=== PATIENT | male | born 1980 | race Caucasian/White ===

== ENCOUNTER 2020-12-08 16:00 | Emergency (ER) | payer OTHER ==
[~2020-12-08 16:00] MED LIST: ANTI-DIARRHEAL2 MG PO; ATARAX25 MG PO; AUGMENTIN 875-1 EACH PO; BENTYL10 MG PO; BUSPAR5 MG PO; CARAFATE1 G1 PO; CARAFATE1 GM PO; DILAUDID2 MG PO; FLEXERIL10 MG PO; GABAPENTIN600 MG PO; KEFLEX250 MG PO; LEVAQUIN750 MG PO; LEXAPRO 10MG TA10 MG PO; LIPITOR20 MG PO; MEDROL 4MG DOSEP4 MG PO; NORCO 5-325 TA1 EACH PO; ONDANSETRON HCL4 MG PO; ONDANSETRON ODT4 MG PO; ONDANSETRON ODT4 MG SL; PEPCID AC20 MG PO; PERCOCET 5-3251 EACH PO; PERCOCET 7.5/321 TAB PO; PHENERGAN25 M1 PO; PREDNISONE50 MG PO; PRINIVIL10 MG PO; PROMETHEGA12.5 MG/SU PR; PROTONIX 40MG T40 MG PO; ROBAXIN500 MG PO; ZOFRAN4 MG SL
[2020-12-08 19:30] LABS: BASOPHIL 0.7 % (0-2); EOSINOPHIL 0.7 % (0-5); HCT 43.7 % (42.0-52.0); HGB 14.2 g/dl (13.2-18.0); LYMPHOCYTE 28.4 % (15-48); MCH 29.8 pg (25.0-31.0); MCHC 32.5 g/dL (32.0-36.0); MCV 91.8 fL (78.0-100.0); MONOCYTE 5.5 % (0-12); MPV 9.9 fL (6.0-9.5); NEUTROPHIL 64.4 % (41-80); NRBC 0; PLT 291 K/uL (150-400); RBC 4.76 M/uL (4.70-6.00); RDW 14.1 % (11.5-14.0); WBC 7.3 K/uL (4.0-10.5)
[2020-12-08 19:30] LABS: BILIRUBIN NEGATIVE (NEGATIVE); BLOOD NEGATIVE Ery/uL (NEGATIVE); CLARITY CLEAR (CLEAR); COLOR YELLOW (YELLOW); GLUCOSE (U) NORMAL (NORMAL); LEUKOCYTES NEGATIVE Leu/uL (NEGATIVE); NITRITE NEGATIVE (NEGATIVE); PROTEIN NEGATIVE (NEGATIVE); SPECIFIC GRAVITY 1.025 (1.001-1.030); UROBILINOGEN 0.2 mg/dL (0.2-1.0); pH 5.5 (5.0-9.0)
[2020-12-08 19:33] LABS: AMPHETAMINES NEGATIVE (NEGATIVE); BARBITURATES NEGATIVE (NEGATIVE); ECSTASY (MDMA) NEGATIVE (NEGATIVE); MARIJUANA (THC) NEGATIVE (NEGATIVE); METHADONE NEGATIVE (NEGATIVE); OPIATES NEGATIVE (NEGATIVE); OXYCODONE NEGATIVE (NEGATIVE)
[2020-12-08 19:49] LABS: BILIRUBIN - TOTAL 0.4 mg/dL (0.2-1.0); BUN/CREAT RATIO (CALC) 13.3 RATIO; CREATININE 0.98 mg/dL (0.67-1.17); GLOBULIN (CALCULATION) 4.3 g/dL; POTASSIUM 3.9 mmol/L (3.5-5.1); TOTAL PROTEIN 8.3 g/dL (6.4-8.2)
== END 2020-12-08 19:45 | disposition home or self-care (01) ==
LOC: FER 16:00
PROVIDERS: Nurse Practitioner Family
DX: K92.0 Hematemesis (principal); R10.84 Generalized abdominal pain; R63.0 Anorexia; I10 Essential (primary) hypertension; Z87.11 Personal history of peptic ulcer disease; Z88.6 Allergy status to analgesic agent; Z88.8 Allergy status to other drugs, medicaments and biological substances; Z87.891 Personal history of nicotine dependence; Z90.49 Acquired absence of other specified parts of digestive tract
CPT/HCPCS: 36415; 80053; 80305; 81003; 85025; 99284

== ENCOUNTER 2021-02-21 09:37 | Emergency (ER) | payer OTHER | END 2021-02-21 15:47 | disposition other institution (70) | LOC: FER 09:37 | DX: M54.40 Lumbago with sciatica, unspecified side (principal); I10 Essential (primary) hypertension; G89.29 Other chronic pain; Z79.891 Long term (current) use of opiate analgesic; Z87.19 Personal history of other diseases of the digestive system | CPT/HCPCS: 99284 ==

== ENCOUNTER 2021-04-03 11:07 | Emergency (ER) | payer OTHER | END 2021-04-03 12:52 | disposition left against medical advice (07) | LOC: FER 11:07 | DX: S51.852A Open bite of left forearm, initial encounter (principal); Z88.5 Allergy status to narcotic agent; Z88.8 Allergy status to other drugs, medicaments and biological substances; Z91.041 Radiographic dye allergy status; W59.11XA Bitten by nonvenomous snake, initial encounter; Z87.891 Personal history of nicotine dependence; Z53.8 Procedure and treatment not carried out for other reasons | CPT/HCPCS: 99283 ==

== ENCOUNTER 2021-05-05 14:54 | Emergency (ER) | payer OTHER ==
[2021-05-05 17:07] LABS: BASOPHIL 0.7 % (0-2); EOSINOPHIL 2.1 % (0-5); HCT 44.1 % (42.0-52.0); HGB 14.5 g/dl (13.2-18.0); LYMPHOCYTE 24.2 % (15-48); MCH 29.5 pg (25.0-31.0); MCHC 32.9 g/dL (32.0-36.0); MCV 89.8 fL (78.0-100.0); MONOCYTE 7.8 % (0-12); MPV 9.4 fL (6.0-9.5); NEUTROPHIL 64.4 % (41-80); NRBC 0; PLT 247 K/uL (150-400); RBC 4.91 M/uL (4.70-6.00); RDW 13.4 % (11.5-14.0); WBC 7.7 K/uL (4.0-10.5)
[2021-05-05 17:17] LABS: INR 1.01 (0.9-1.2); PROTHROMBIN TIME 12.6 SECONDS (11.4-13.6); PTT 25.4 SECONDS (22.2-34.7)
[2021-05-05 17:21] LABS: POTASSIUM 4.1 mmol/L (3.5-5.1)
[2021-05-05] MEDS ORDERED: XARELTO15 MG PO (17:43)
== END 2021-05-05 18:05 | disposition home or self-care (01) ==
LOC: FER 14:54
PROVIDERS: Emergency Medicine
DX: I82.401 Acute embolism and thrombosis of unspecified deep veins of right lower extremity (principal); I10 Essential (primary) hypertension; Z88.6 Allergy status to analgesic agent; Z88.8 Allergy status to other drugs, medicaments and biological substances
CPT/HCPCS: 36415; 80048; 85025; 85610; 85730

== ENCOUNTER 2021-05-09 16:51 | Emergency (ER) | payer OTHER ==
[~2021-05-09 16:51] MED LIST changes: +XARELTO15 MG PO
[2021-05-09 20:09] LABS: BASOPHIL 0.8 % (0-2); BILIRUBIN NEGATIVE (NEGATIVE); BLOOD NEGATIVE Ery/uL (NEGATIVE); CLARITY CLEAR (CLEAR); COLOR YELLOW (YELLOW); EOSINOPHIL 0.9 % (0-5); GLUCOSE (U) NORMAL (NORMAL); HCT 40.1 % (42.0-52.0); HGB 13.7 g/dl (13.2-18.0); LEUKOCYTES NEGATIVE Leu/uL (NEGATIVE); MCH 30.3 pg (25.0-31.0); MCHC 34.2 g/dL (32.0-36.0); MCV 88.7 fL (78.0-100.0); MONOCYTE 6.2 % (0-12); MPV 9.4 fL (6.0-9.5); NEUTROPHIL 65.3 % (41-80); NITRITE NEGATIVE (NEGATIVE); NRBC 0; PLT 277 K/uL (150-400); PROTEIN NEGATIVE (NEGATIVE); RBC 4.52 M/uL (4.70-6.00); RDW 13.8 % (11.5-14.0); SPECIFIC GRAVITY 1.015 (1.001-1.030); UROBILINOGEN 0.2 mg/dL (0.2-1.0)
[2021-05-09 20:28] LABS: CREATININE 1.12 mg/dL (0.67-1.17); POTASSIUM 4.2 mmol/L (3.5-5.1); TOTAL PROTEIN 8.3 g/dL (6.4-8.2)
[2021-05-09 20:29] LABS: ALBUMIN 4.2 g/dL (3.4-5.0); BILIRUBIN - TOTAL 0.3 mg/dL (0.2-1.0); GLOBULIN (CALCULATION) 4.1 g/dL
== END 2021-05-09 22:50 | disposition home or self-care (01) ==
LOC: FER 16:51
PROVIDERS: Emergency Medicine
DX: N50.811 Right testicular pain (principal); I10 Essential (primary) hypertension; F17.200 Nicotine dependence, unspecified, uncomplicated; Z86.718 Personal history of other venous thrombosis and embolism; Z88.6 Allergy status to analgesic agent; Z88.8 Allergy status to other drugs, medicaments and biological substances
CPT/HCPCS: 36415; 76870; 80053; 81003; 85025; J2270; J2405; J7030

== ENCOUNTER 2021-05-15 15:05 | Inpatient (IN) | payer OTHER ==
[~2021-05-15] VITALS: Ht 175.3 cm; Wt 94.4 kg
[2021-05-15 19:19] LABS: BASOPHIL 0.6 % (0-2); EOSINOPHIL 0.5 % (0-5); HCT 44.7 % (42.0-52.0); HGB 14.9 g/dl (13.2-18.0); LYMPHOCYTE 22.6 % (15-48); MCH 29.7 pg (25.0-31.0); MCHC 33.3 g/dL (32.0-36.0); MONOCYTE 8.1 % (0-12); MPV 9.3 fL (6.0-9.5); NEUTROPHIL 67.4 % (41-80); NRBC 0; PLT 298 K/uL (150-400); RBC 5.02 M/uL (4.70-6.00); RDW 13.8 % (11.5-14.0); WBC 11.6 K/uL (4.0-10.5)
[2021-05-15 19:56] LABS: CREATININE 2.23 mg/dL (0.67-1.17); POTASSIUM 4.6 mmol/L (3.5-5.1)
[2021-05-16] MEDS ORDERED: TIZANIDINE HCL4 MG PO
[2021-05-16 10:07] LABS: BASOPHIL 0.9 % (0-2); EOSINOPHIL 0.9 % (0-5); HCT 42.2 % (42.0-52.0); HGB 13.6 g/dl (13.2-18.0); LYMPHOCYTE 24.9 % (15-48); MCH 29.8 pg (25.0-31.0); MCHC 32.2 g/dL (32.0-36.0); MCV 92.5 fL (78.0-100.0); MONOCYTE 7.3 % (0-12); MPV 9.5 fL (6.0-9.5); NEUTROPHIL 65.6 % (41-80); NRBC 0; PLT 212 K/uL (150-400); RBC 4.56 M/uL (4.70-6.00); RDW 14.1 % (11.5-14.0); RETICULOCYTE COUNT 1.3 % (1.0-2.0)
[2021-05-16 10:24] LABS: INR 2.01 (0.9-1.2); PROTHROMBIN TIME 21.7 SECONDS (11.4-13.6)
[2021-05-16 10:28] LABS: IRON % SATURATION 17.1 %SAT (20-50)
[2021-05-16 10:40] LABS: PRO-BNP 5 pg/mL (<125)
[2021-05-16 11:06] LABS: ALBUMIN 3.8 g/dL (3.4-5.0); BILIRUBIN - TOTAL 0.3 mg/dL (0.2-1.0); BUN/CREAT RATIO (CALC) 24.6 RATIO; CREATININE 1.22 mg/dL (0.67-1.17); FOLIC ACID (SERUM) 39.5 ng/mL (8.6-58.9); GLOBULIN (CALCULATION) 3.7 g/dL; MAGNESIUM 2.3 mg/dL (1.8-2.4); PHOSPHORUS 2.7 mg/dL (2.6-4.7); POTASSIUM 5.1 mmol/L (3.5-5.1); TOTAL PROTEIN 7.5 g/dL (6.4-8.2)
[2021-05-16 14:20] LABS: HCT 40.6 % (42.0-52.0); HGB 13.5 g/dl (13.2-18.0); MCH 30.1 pg (25.0-31.0); MCHC 33.3 g/dL (32.0-36.0); MCV 90.4 fL (78.0-100.0); MPV 9.2 fL (6.0-9.5); RBC 4.49 M/uL (4.70-6.00); RDW 14.1 % (11.5-14.0); WBC 7.1 K/uL (4.0-10.5)
[2021-05-16 14:47] LABS: BUN/CREAT RATIO (CALC) 23.3 RATIO; CREATININE 1.16 mg/dL (0.67-1.17); POTASSIUM 4.9 mmol/L (3.5-5.1)
[2021-05-16 20:55] LABS: HCT 40.4 % (42.0-52.0); HGB 13.8 g/dl (13.2-18.0); MCH 30.1 pg (25.0-31.0); MCHC 34.2 g/dL (32.0-36.0); MCV 88.2 fL (78.0-100.0); MPV 9.6 fL (6.0-9.5); RBC 4.58 M/uL (4.70-6.00); RDW 14.2 % (11.5-14.0); WBC 8.4 K/uL (4.0-10.5)
[2021-05-17 06:39] LABS: BASOPHIL 0.6 % (0-2); BUN/CREAT RATIO (CALC) 15.4 RATIO; CREATININE 1.04 mg/dL (0.67-1.17); EOSINOPHIL 1.8 % (0-5); HCT 37.5 % (42.0-52.0); HGB 12.4 g/dl (13.2-18.0); LYMPHOCYTE 24.5 % (15-48); MCH 29.5 pg (25.0-31.0); MCHC 33.1 g/dL (32.0-36.0); MCV 89.3 fL (78.0-100.0); MONOCYTE 7.8 % (0-12); MPV 9.2 fL (6.0-9.5); NEUTROPHIL 64.8 % (41-80); NRBC 0; PLT 229 K/uL (150-400); POTASSIUM 5.3 mmol/L (3.5-5.1); RDW 13.8 % (11.5-14.0); WBC 7.9 K/uL (4.0-10.5)
--- NOTE | 2021-05-17 10:50 | NUR ---
PATIENT ASKED TO LEAVE AMA, WHEN QUESTIONTING PATIENT OF THE REASONING, HE STATED HIS WANTS HIM TO GO TO [facility] TO SEEN. PATIENT STATED HE WAS HAPPY WITH HIS CARE HERE, THE ONLY REASON HE IS LEAVING IS BECAUSE HIS WANTS HIM TO. IV, HEART MONITOR REMOVED, AND AMA PAPER SIGNED.
== END 2021-05-17 10:55 | disposition left against medical advice (07) | DRG 378 ==
LOC: FER 15:05 → FMS 22:02
PROVIDERS: Hospitalist; Nurse Practitioner Family; ADMIT Internal Medicine
DX: K92.0 Hematemesis (principal); N17.9 Acute kidney failure, unspecified; E86.0 Dehydration; I10 Essential (primary) hypertension; F41.9 Anxiety disorder, unspecified; K21.9 Gastro-esophageal reflux disease without esophagitis; E78.5 Hyperlipidemia, unspecified; F32.9 Major depressive disorder, single episode, unspecified; Z20.822 Contact with and (suspected) exposure to COVID-19; K44.9 Diaphragmatic hernia without obstruction or gangrene; Z87.891 Personal history of nicotine dependence; Z86.718 Personal history of other venous thrombosis and embolism; Z79.01 Long term (current) use of anticoagulants; Z90.49 Acquired absence of other specified parts of digestive tract; Z88.8 Allergy status to other drugs, medicaments and biological substances; Z98.890 Other specified postprocedural states; Z79.899 Other long term (current) drug therapy; Z87.11 Personal history of peptic ulcer disease; Z56.0 Unemployment, unspecified
CPT/HCPCS: 36415; 70450; 80048; 80053; 82607; 82746; 82941; 83540; 83550; 83605; 83735; 83880; 84100; 84145; 84484; 85025; 85610; 85730; 86850; 86900; 86901; 93005; 94010; C9113; J1170; J2270; J2354; J2405; J7030

== ENCOUNTER 2021-06-02 21:56 | Emergency (ER) | payer OTHER ==
[~2021-06-02 21:56] MED LIST changes: +TIZANIDINE HCL4 MG PO
[2021-06-02 23:34] LABS: BASOPHIL 0.7 % (0-2); HCT 39.4 % (42.0-52.0); HGB 13.5 g/dl (13.2-18.0); LYMPHOCYTE 28.7 % (15-48); MCH 30.2 pg (25.0-31.0); MCHC 34.3 g/dL (32.0-36.0); MCV 88.1 fL (78.0-100.0); MONOCYTE 7.3 % (0-12); MPV 10.1 fL (6.0-9.5); NEUTROPHIL 61.6 % (41-80); NRBC 0; PLT 284 K/uL (150-400); RBC 4.47 M/uL (4.70-6.00); RDW 14.4 % (11.5-14.0); WBC 7.3 K/uL (4.0-10.5)
[2021-06-02 23:39] LABS: INR 1.24 (0.9-1.2); PROTHROMBIN TIME 14.9 SECONDS (11.8-13.4); PTT 27.7 SECONDS (24.4-34.7)
[2021-06-02 23:44] LABS: ALBUMIN 3.8 g/dL (3.4-5.0); BILIRUBIN - TOTAL 0.3 mg/dL (0.2-1.0); BUN/CREAT RATIO (CALC) 14.2 RATIO; CREATININE 1.06 mg/dL (0.67-1.17); POTASSIUM 4.2 mmol/L (3.5-5.1); TOTAL PROTEIN 7.8 g/dL (6.4-8.2)
[2021-06-02 23:53] LABS: BILIRUBIN NEGATIVE (NEGATIVE); BLOOD NEGATIVE Ery/uL (NEGATIVE); CLARITY CLEAR (CLEAR); COLOR YELLOW (YELLOW); GLUCOSE (U) NORMAL (NORMAL); LEUKOCYTES NEGATIVE Leu/uL (NEGATIVE); NITRITE NEGATIVE (NEGATIVE); PROTEIN NEGATIVE (NEGATIVE); UROBILINOGEN 0.2 mg/dL (0.2-1.0); pH 5.5 (5.0-9.0)
[2021-06-02 23:55] LABS: AMPHETAMINES NEGATIVE (NEGATIVE); BARBITURATES NEGATIVE (NEGATIVE); ECSTASY (MDMA) NEGATIVE (NEGATIVE); MARIJUANA (THC) NEGATIVE (NEGATIVE); METHADONE NEGATIVE (NEGATIVE); OPIATES NEGATIVE (NEGATIVE); OXYCODONE NEGATIVE (NEGATIVE)
== END 2021-06-03 00:48 | disposition home or self-care (01) ==
LOC: FER 21:56
PROVIDERS: Emergency Medicine
DX: K92.0 Hematemesis (principal); Z86.718 Personal history of other venous thrombosis and embolism; Z88.6 Allergy status to analgesic agent; Z87.891 Personal history of nicotine dependence
CPT/HCPCS: 36415; 80053; 80305; 81003; 82271; 85025; 85610; 85730; C9113; J0595; J2270; J2405; J7030

== ENCOUNTER 2021-06-30 19:22 | Emergency (ER) | payer OTHER ==
[2021-06-30 20:26] LABS: BASOPHIL 0.8 % (0-2); EOSINOPHIL 1.6 % (0-5); HCT 43.7 % (42.0-52.0); MCH 28.9 pg (25.0-31.0); MCV 90.3 fL (78.0-100.0); MONOCYTE 8.1 % (0-12); MPV 9.8 fL (6.0-9.5); NEUTROPHIL 60.6 % (41-80); NRBC 0; PLT 242 K/uL (150-400); RBC 4.84 M/uL (4.70-6.00); RDW 14.7 % (11.5-14.0); WBC 9.2 K/uL (4.0-10.5)
[2021-06-30 20:41] LABS: BUN/CREAT RATIO (CALC) 24.5 RATIO; CREATININE 1.02 mg/dL (0.67-1.17); MAGNESIUM 2.3 mg/dL (1.8-2.4); POTASSIUM 4.4 mmol/L (3.5-5.1)
[2021-06-30 20:58] LABS: BILIRUBIN NEGATIVE (NEGATIVE); BLOOD NEGATIVE Ery/uL (NEGATIVE); CLARITY CLEAR (CLEAR); COLOR YELLOW (YELLOW); GLUCOSE (U) NORMAL (NORMAL); LEUKOCYTES NEGATIVE Leu/uL (NEGATIVE); NITRITE NEGATIVE (NEGATIVE); PROTEIN NEGATIVE (NEGATIVE); pH 6.5 (5.0-9.0)
[2021-06-30 21:02] LABS: AMPHETAMINES NEGATIVE (NEGATIVE); BARBITURATES NEGATIVE (NEGATIVE); ECSTASY (MDMA) NEGATIVE (NEGATIVE); MARIJUANA (THC) NEGATIVE (NEGATIVE); METHADONE NEGATIVE (NEGATIVE); OPIATES NEGATIVE (NEGATIVE); OXYCODONE POSITIVE (NEGATIVE)
== END 2021-06-30 22:34 | disposition home or self-care (01) ==
LOC: FER 19:22
PROVIDERS: Emergency Medicine Emergency Medical Services
DX: I82.431 Acute embolism and thrombosis of right popliteal vein (principal); I82.451 Acute embolism and thrombosis of right peroneal vein; I82.411 Acute embolism and thrombosis of right femoral vein; Z86.73 Personal history of transient ischemic attack (TIA), and cerebral infarction without residual deficits; Z79.01 Long term (current) use of anticoagulants; Z88.8 Allergy status to other drugs, medicaments and biological substances; Z90.49 Acquired absence of other specified parts of digestive tract; Z79.899 Other long term (current) drug therapy
CPT/HCPCS: 36415; 76870; 80048; 80305; 81003; 83735; 85025; 93971; 96372; J1170; J2405

== ENCOUNTER 2021-08-18 15:39 | Emergency (ER) | payer OTHER ==
[2021-08-18 16:57] LABS: BASOPHIL 0.6 % (0-2); EOSINOPHIL 1.5 % (0-5); HCT 42.7 % (42.0-52.0); HGB 14.3 g/dl (13.2-18.0); LYMPHOCYTE 25.4 % (15-48); MCH 29.8 pg (25.0-31.0); MCHC 33.5 g/dL (32.0-36.0); MONOCYTE 9.5 % (0-12); MPV 9.6 fL (6.0-9.5); NEUTROPHIL 62.6 % (41-80); NRBC 0; PLT 257 K/uL (150-400); WBC 6.8 K/uL (4.0-10.5)
[2021-08-18 17:01] LABS: PTT 24.1 SECONDS (24.4-34.7)
[2021-08-18 17:02] LABS: INR 1.29 (0.9-1.2); PROTHROMBIN TIME 15.4 SECONDS (11.8-13.4)
[2021-08-18 17:06] LABS: BILIRUBIN NEGATIVE (NEGATIVE); BLOOD NEGATIVE Ery/uL (NEGATIVE); CLARITY CLEAR (CLEAR); COLOR YELLOW (YELLOW); GLUCOSE (U) NORMAL (NORMAL); LEUKOCYTES NEGATIVE Leu/uL (NEGATIVE); NITRITE NEGATIVE (NEGATIVE); PROTEIN NEGATIVE (NEGATIVE); SPECIFIC GRAVITY 1.025 (1.001-1.030); UROBILINOGEN 0.2 mg/dL (0.2-1.0)
[2021-08-18 17:09] LABS: AMPHETAMINES NEGATIVE (NEGATIVE); BARBITURATES NEGATIVE (NEGATIVE); ECSTASY (MDMA) NEGATIVE (NEGATIVE); MARIJUANA (THC) NEGATIVE (NEGATIVE); METHADONE NEGATIVE (NEGATIVE); OPIATES NEGATIVE (NEGATIVE); OXYCODONE NEGATIVE (NEGATIVE)
[2021-08-18 17:10] LABS: ALBUMIN 3.8 g/dL (3.4-5.0); BILIRUBIN - TOTAL 0.3 mg/dL (0.2-1.0); BUN/CREAT RATIO (CALC) 16.1 RATIO; CREATININE 0.93 mg/dL (0.67-1.17); GLOBULIN (CALCULATION) 3.5 g/dL; POTASSIUM 3.9 mmol/L (3.5-5.1); TOTAL PROTEIN 7.3 g/dL (6.4-8.2)
[2021-08-18 17:12] LABS: LACTIC ACID 1.3 mmol/L (0.4-1.9)
== END 2021-08-18 18:23 | disposition home or self-care (01) ==
LOC: FER 15:39
PROVIDERS: Emergency Medicine
DX: K29.50 Unspecified chronic gastritis without bleeding (principal); Z88.6 Allergy status to analgesic agent; Z88.8 Allergy status to other drugs, medicaments and biological substances
CPT/HCPCS: 36415; 80053; 80305; 81003; 83605; 83690; 85025; 85610; 85730; C9113; J2405; J7030

== ENCOUNTER 2021-09-06 00:33 | Emergency (ER) | payer OTHER | END 2021-09-06 00:40 | LOC: FER 00:33 | DX: Z02.89 Encounter for other administrative examinations (principal); I10 Essential (primary) hypertension; Z88.6 Allergy status to analgesic agent | CPT/HCPCS: 99283 ==

== ENCOUNTER 2021-11-18 13:22 | Emergency (ER) | payer OTHER ==
[2021-11-18 16:14] LABS: BILIRUBIN NEGATIVE (NEGATIVE); BLOOD NEGATIVE Ery/uL (NEGATIVE); CLARITY CLEAR (CLEAR); COLOR YELLOW (YELLOW); GLUCOSE (U) NORMAL (NORMAL); LEUKOCYTES NEGATIVE Leu/uL (NEGATIVE); NITRITE NEGATIVE (NEGATIVE); PROTEIN NEGATIVE (NEGATIVE); SPECIFIC GRAVITY 1.015 (1.001-1.030); UROBILINOGEN 0.2 mg/dL (0.2-1.0)
[2021-11-19 21:09] LABS: CHLAMYDIA TRACHOMATIS, NAA Negative (Negative); NEISSERIA GONORRHOEAE, NAA Negative (Negative)
== END 2021-11-18 17:00 | disposition home or self-care (01) ==
LOC: FER 13:22
PROVIDERS: Emergency Medicine
DX: I86.1 Scrotal varices (principal); N44.2 Benign cyst of testis; I10 Essential (primary) hypertension; Z88.5 Allergy status to narcotic agent; Z88.8 Allergy status to other drugs, medicaments and biological substances; Z79.899 Other long term (current) drug therapy
CPT/HCPCS: 76870; 81003; 87491; 87591

== ENCOUNTER 2021-12-21 17:54 | Emergency (ER) | payer OTHER ==
[2021-12-21 23:40] LABS: BASOPHIL 0.6 % (0-2); EOSINOPHIL 0.6 % (0-5); HCT 44.7 % (42.0-52.0); HGB 14.9 g/dl (13.2-18.0); LYMPHOCYTE 28.7 % (15-48); MCH 30.5 pg (25.0-31.0); MCHC 33.3 g/dL (32.0-36.0); MCV 91.6 fL (78.0-100.0); MONOCYTE 5.5 % (0-12); MPV 9.3 fL (6.0-9.5); NEUTROPHIL 63.9 % (41-80); NRBC 0; PLT 247 K/uL (150-400); RBC 4.88 M/uL (4.70-6.00); RDW 13.3 % (11.5-14.0); WBC 9.6 K/uL (4.0-10.5)
[2021-12-21 23:49] LABS: BILIRUBIN NEGATIVE (NEGATIVE); BLOOD 3+ Ery/uL (NEGATIVE); CLARITY HAZY (CLEAR); COLOR RED (YELLOW); GLUCOSE (U) NORMAL (NORMAL); LEUKOCYTES 1+ Leu/uL (NEGATIVE); NITRITE NEGATIVE (NEGATIVE); PROTEIN TRACE (LOW) mg/dL (NEGATIVE); SPECIFIC GRAVITY 1.025 (1.001-1.030); UROBILINOGEN 0.2 mg/dL (0.2-1.0)
[2021-12-21 23:54] LABS: AMORPHOUS URATES CRYSTALS TRACE; BACTERIA 1+; URINARY RBC TNTC
[2021-12-21 23:58] LABS: BUN/CREAT RATIO (CALC) 17.2 RATIO; CREATININE 0.93 mg/dL (0.67-1.17); POTASSIUM 3.5 mmol/L (3.5-5.1)
[2021-12-22] MEDS ORDERED: CIPRO500 MG PO (00:35)
[2021-12-22] MEDS ORDERED: FLOMAX0.4 MG PO (00:35)
[2021-12-22] MEDS ORDERED: ONDANSETRON ODT8 MG PO (01:56)
== END 2021-12-22 01:40 | disposition home or self-care (01) ==
LOC: FER 17:54
PROVIDERS: Emergency Medicine Emergency Medical Services
DX: K27.3 Acute peptic ulcer, site unspecified, without hemorrhage or perforation (principal); Z88.5 Allergy status to narcotic agent; Z88.8 Allergy status to other drugs, medicaments and biological substances
CPT/HCPCS: 36415; 74018; 80048; 81001; 85025; 96372; J1170; J2405

== ENCOUNTER 2022-01-13 14:06 | Emergency (ER) | payer OTHER ==
[~2022-01-13 14:06] MED LIST changes: +CIPRO500 MG PO; +FLOMAX0.4 MG PO; +ONDANSETRON ODT8 MG PO
== END 2022-01-13 17:12 | disposition home or self-care (01) ==
LOC: FER 14:06
DX: S20.212A Contusion of left front wall of thorax, initial encounter (principal); M25.511 Pain in right shoulder; I10 Essential (primary) hypertension; Z88.5 Allergy status to narcotic agent; Z88.8 Allergy status to other drugs, medicaments and biological substances; W01.0XXA Fall on same level from slipping, tripping and stumbling without subsequent striking against object, initial encounter
CPT/HCPCS: 71101; 73030